=== PATIENT | male | born 1975 | race Caucasian/White ===

== ENCOUNTER 2018-03-26 16:16 | Emergency (ER) | payer OTHER ==
[~2018-03-26] VITALS: Ht 172.7 cm; Wt 102.5 kg
[2018-03-26 16:51] VITALS: Ht 172.7 cm; Wt 102.5 kg
[2018-03-26 18:27] LABS: BASOPHIL % 0.4 % (0-2); PLATELET COUNT 261 x10^3mcL (130-400); RED CELL DISTRIBUTION WIDTH 12.8 % (11.5-14.5)
[2018-03-26 18:36] LABS: ALBUMIN 3.9 g/dL (3.4-5.0); ALKALINE PHOSPHATASE 63 U/L (46-116); ALT/SGPT 56 U/L (16-63); AST/SGOT 28 U/L (15-37); BILIRUBIN TOTAL 0.34 mg/dL (0.20-1.00); CALCIUM 8.7 mg/dL (8.5-10.1); CARBON DIOXIDE 26.9 mmol/L (21-32); CHLORIDE SERUM 104 mmol/L (98-107); CREATININE SERUM 1.1 mg/dL (0.7-1.3); GFR1 > 60 mL/min; GLUCOSE SERUM 105 mg/dL (74-106); LIPASE 143 IU/L (73-393); POTASSIUM SERUM 3.8 mmol/L (3.5-5.1); TOTAL PROTEIN, SERUM 7.7 g/dL (6.4-8.2)
[2018-03-26 18:52] LABS: SODIUM SERUM 135 mmol/L (136-145)
[2018-03-26 20:01] VITALS: BP 116/76
== END 2018-03-26 20:01 | disposition home or self-care (01) ==
LOC: ED 16:16
PROVIDERS: Emergency Medicine
DX: K57.92 Diverticulitis of intestine, part unspecified, without perforation or abscess without bleeding (principal)
CPT/HCPCS: 36415